=== PATIENT | female | born 1960 | race Caucasian/White ===

== ENCOUNTER 2016-10-07 21:48 | Emergency (ER) | payer OTHER ==
[2016-10-07 22:09] VITALS: BP 144/96; PULSE 90; RESP 20; O2SAT 99
[2016-10-07] MEDS ORDERED: TRAM50TA2 PO (22:15)
[2016-10-07] MEDS ORDERED: TRAZ-115 PO (22:15)
--- NOTE | 2016-10-07 23:37 | ED.REPORT ---
HPI-General Illness Date of Service October 07, 2016 ED Provider: Dr. Ponce Pt is a 56 year old female with a history back injury causing chronic back pain who presents to the ED complaining of diffuse back pain onset 3 days ago. Pt has taken 12 Tylenol in the last 8 hours to relieve her symptoms. She was previously prescribed Tramadol for her chronic pain, but wasn't paying attention and ran out. Per pt, her PCP is out for the week, therefore she is unable to get a refill. She admits to subjective fever, shaking, dark urine, and difficult walking secondary to pain. Nursing Notes Stated Complaint: PAIN EVERYWHERE Chief Complaint: Back Pain or Injury Nursing Notes Reviewed: Yes Allergies: Coded Allergies: No Known Allergies (Verified , 10/07/16) Scheduled Meloxicam (Mobic) 15 Mg Tablet 15 MG PO DAILY Trazodone (Trazodone) 50 Mg Tablet 50 MG PO HS Scheduled PRN Tramadol (Tramadol) 50 Mg Tablet 100 MG PO Q6H PRN PRN For Pain General Time Seen by MD: 23:37 Chief Complaint Back pain Hx Obtained From: Patient Arrived By: Walk-in Sudden in Onset?: No Onset Occurred: 3 days ago Context of Onset: Ran out of medication Symptom Duration: Since onset Location: : Back Quality: Painful Severity: Current: Moderate Severity: Maximum: Moderate Recent Healthcare: Previous diagnosis Similar Sx Previous: Yes Past Medical History Past Medical History Chronic back pain caused by back injury - takes Tramadol Past Surgical History None reported Smoking History Current Every Day Smoker Social History Alcohol Use: "Social" Ambulatory Status Independent Review of Systems +darkened urine Full Review of Systems Constitutional: Reports: Chills, Fever (subjective) Musculoskeletal: Reports: Back pain Complete sys rev & neg: except as marked. Physical Exam Vital Signs Vital Signs Date Time Temp Pulse Resp B/P Pulse Ox O2 Delivery O2 Flow Rate FiO2 10/08/16 00:16 36.2 90 20 144/96 99 10/07/16 22:09 36.2 90 20 144/96 99 Initial VS: Reviewed Head / Eyes: Atraumatic, Normocephalic ENT: Mucous membranes moist, Conjunctiva normal, No scleral icterus Neck: Supple, Full range of motion Respiratory: No respiratory distress Abdomen / GI: No distention Extremities: Vascular intact, Neuro intact, No swelling, No tenderness Skin: Warm, Dry, No cyanosis Neurologic: Alert, Oriented, Nonfocal Psychiatric: Mood/affect normal, Behavior normal, Normal thought content General/Constitutional: Awake, Alert, No acute distress, Well appearing, Cooperative, Not toxic appearing Braced in bed. Back: Atraumatic Tender to slightest skin touch on back. Interpretation & Diagnostics Lab Results Interpretation Test 10/07/16 23:51 Urine Color Straw (YELLOW) Urine Appearance Clear (CLEAR,HAZY) Urine pH 5.0 (5.0-8.0) Urine Specific Atco 1.018 (1.003-1.035) Urine Protein Negativemg/dL (NEG,TRACE) Urine Glucose (UA) Negativemg/dL (NEGATIVE) Urine Ketones Negativemg/dL (NEGATIVE) Urine Occult Blood Negative (NEGATIVE) Urine Nitrite Negative (NEGATIVE) Urine Bilirubin Negative (NEGATIVE) Urine Urobilinogen Normalmg/dL (NORMAL) Urine Leukocyte Esterase Negative (NEGATIVE) Urine RBC 0-2/hpf (0-2) Urine WBC 0-5/hpf (0-5) Urine Epithelial Cells Occasional/hpf (NONE-MOD) Urine Crystals None seen (NONE SEEN) Urine Bacteria Few/hpf (NONE-FEW) Urine Hyaline Casts None/lpf (NONE) Urine Granular Casts None seen (NONE SEEN) Urine Waxy Casts None seen (NONE SEEN) Urine Red Blood Cell Casts None seen (NONE SEEN) Urine White Blood Cell Casts None seen (NONE SEEN) Urine Mucus None seen (None Seen) Urine Trichomonas None seen (NONE SEEN) Urine Yeast None (NONE SEEN) Urinalysis Comment None Urine Culture Reflexed Not indicated Lab Results Interpretation: Urine tox screen: positive for methamphetamine Re-Eval/Medical Decision Med Decision/Clinical Course 56-year-old presents with chronic back pain, purportedly out of her prescribed tramadol. The current legal situation with rules of controlled substances was discussed with her in detail. She was given a single dose of tramadol, but we cannot prescribe ongoing tramadol for her. She is also given Decadron. Her urine tox is positive for multiple agents including methamphetamine. She is advised to seek care with her primary care doctor during the day, when her doctor can be contacted or better, to get care directly from her primary care doctor. In any case, we may not legally represcribe her medicines. She is discharged in stable condition. Time of Eval: 00:13 Re-Evaluation/Progress Note: Pt rechecked. Informed pt of plan for treatment. Pt understands and agrees with plan for treatment. F/U instructions and RTER warnings given. All questions addressed. Counseled Regarding: Diagnosis, Need for follow-up, When/why to return to ED Discharge & Departure Primary Impression: Back pain Back pain location: low back pain Chronicity: chronic Back pain laterality : bilateral Sciatica presence: with sciatica Sciatica laterality: sciatica laterality unspecified Qualified Code: M54.40 - Lumbago with sciatica, unspecified side Additional Impression: Substance abuse Disposition: Home Discharge Condition All VS Reviewed: Yes Condition: Stable Patient Instructions: Acute Low Back Pain (ED) Additional Instructions: Follow-up tomorrow with your doctor. We cannot, by law, renew or extend controlled prescriptions that you overuse and run out of. You should be particularly wary of tramadol, and never exceed eight tablets in a day. It can cause seizures in overuse. Begin Mobic daily. Resume your pain meds as your doctor directs. Again, do not overuse them, as they are actually dangerous in overdose. Referrals: Paulina Guzman MD (PCP) Scribe Attestation Portions of this note were transcribed by Conrad Fontenot and Destini Vallejo. I, Dr. Ponce personally performed the history, physical exam and medical decision -making; I reviewed and confirmed the accuracy of the information in the transcribed note. Signed by: Conrad Fontenot and Destini Vallejo, Scribe, 10/08/16 and 0012. copies to: Paulina Guzman MD, Christopher W MD October 07, 2016 23:37 Destini Reardon October 07, 2016 23:52 CONRAD FONTENOT October 08, 2016 00:23
[2016-10-07] MEDS ORDERED: Dexamethasone 20 mg/2 mL Oral Solution PO ONE (23:50)
[2016-10-08] MEDS ORDERED: MELO15TA14 PO (00:08)
[2016-10-08 00:16] VITALS: BP 144/96; PULSE 90; RESP 20; O2SAT 99
[2016-10-08 00:24] LABS: APPEARANCE,URINE CLEAR (CLEAR,HAZY); COLOR,URINE STRAW (YELLOW); OCCULT BLOOD,URINE NEGATIVE (NEGATIVE); UROBILINOGEN,URINE NORMAL (NORMAL)
== END 2016-10-08 00:18 | disposition home or self-care (01) ==
LOC: SED 21:48
DX: M54.40 Lumbago with sciatica, unspecified side (principal); G89.29 Other chronic pain; F11.10 Opioid abuse, uncomplicated; R50.9 Fever, unspecified; R25.1 Tremor, unspecified; R82.99 Other abnormal findings in urine; R26.2 Difficulty in walking, not elsewhere classified; F17.200 Nicotine dependence, unspecified, uncomplicated; Z87.828 Personal history of other (healed) physical injury and trauma
CPT/HCPCS: 81000; 96374; 99284; J1885